=== PATIENT | female | born 1970 | race Caucasian/White ===

== ENCOUNTER 2018-12-17 16:36 | Inpatient (IN) | payer BC, OTHER ==
[~2018-12-17] VITALS: Ht 162.6 cm; Wt 67.0 kg
[2018-12-17] MEDS ORDERED: SODIUM CHLORIDE FLUSH 10ML SYR IVF ONE (17:00)
[2018-12-17] MEDS ORDERED: CLINDAMYCIN PMX 600MG/50ML 50 ML IV ONE (17:00)
[2018-12-17 17:19] LABS: BASOPHILS # (AUTO) 0.03 x10^3/uL (0-0.1); BASOPHILS % (AUTO) 0 % (0-1); EOSINOPHILS # (AUTO) 0.03 x10^3/uL (0-0.4); EOSINOPHILS % (AUTO) 0 % (1-7); LYMPHOCYTES # (AUTO) 1.91 x10^3/uL (1-3.4); LYMPHOCYTES % (AUTO) 15 % (22-44); MD NO; MEAN CORPUSCULAR HEMOGLOBIN 30.6 pg (27.0-34.8); MEAN CORPUSCULAR VOLUME 90.1 fL (80-100); MEAN PLATELET VOLUME 7.6 fL (7.4-10.4); MONOCYTES # (AUTO) 0.67 x10^3/uL (0.2-0.8); MONOCYTES % (AUTO) 5 % (2-9); NEUTROPHILS # (AUTO) 9.95 x10^3/uL (1.8-6.8); NEUTROPHILS % (AUTO) 79 % (42-75); PLATELET COUNT 294 x10^3/uL (130-400); RED BLOOD COUNT 4.83 x10^6/uL (3.82-5.3); RED CELL DISTRIBUTION WIDTH 13.9 % (9.6-15.2)
[2018-12-17 17:27] LABS: ALBUMIN 3.8 g/dL (3.4-5.0); ANION GAP 8 mmol/L (5-15); CALCIUM 8.9 mg/dL (8.5-10.1); CHLORIDE 105 mmol/L (98-107); CREATININE 0.85 mg/dL (0.55-1.02)
[2018-12-17] MEDS ORDERED: ONDANSETRON 2MG/ML, 2ML ONE (17:27)
[2018-12-17] MEDS ORDERED: DEXAMETHASONE 4 MG/ML, 5ML ONE (17:27)
[2018-12-17] MEDS ORDERED: CLINDAMYCIN PMX 600MG/50ML 50 ML ONE (17:28)
[2018-12-17] MEDS ORDERED: HYDROmorphone 1 MG/ML, 1ML AMP ONE (17:28)
[2018-12-17] MEDS ORDERED: ONDANSETRON 2MG/ML, 2ML IVPush ONE (17:30)
[2018-12-17] MEDS ORDERED: HYDROmorphone 2 MG/ML, 1ML IVPush ONE (17:30)
[2018-12-17] MEDS ORDERED: DEXAMETHASONE 4 MG/ML, 1ML IVPush ONE (17:30)
[2018-12-17] MEDS: SODIUM CHLORIDE 0.9% 1,000 ML IV SCH (17:54)
[2018-12-17] MEDS ORDERED: BISACODYL 10 MG SUPP PR PRN (18:00)
[2018-12-17] MEDS ORDERED: VANCOMYCIN PER PHARMACY MC PRN (18:00)
[2018-12-17] MEDS ORDERED: ONDANSETRON 2MG/ML, 2ML IVPush PRN (18:00)
[2018-12-17] MEDS ORDERED: ACETAMINOPHEN 325 MG TABLET PO PRN (18:00)
[2018-12-17] MEDS ORDERED: DOCUSATE 100 MG CAPSULE PO PRN (18:00)
--- NOTE | 2018-12-17 18:20 | NUR ---
PT SP02 = 88% WHEN SLEEPING AFTER REC' DELAUDID. 02 2L NC PLACED WITH EFFECT
[2018-12-17] MEDS: MEROPENEM 1 GM in SODIUM CHLORIDE 0.9% 100 ML IV SCH (18:53)
--- NOTE | 2018-12-17 20:05 | NUR ---
PT MEDICATED ORDERED. PT WITH AT BEDSIDE AND NO COMPLAINT OF PAIN AT THIS TIME. PT TO BE ADMIT BUT IS ON A MEDICAL HOLD AT THIS TIME.
--- NOTE | 2018-12-17 20:57 | NUR ---
PT UP TO BR WITH DOING STANDBY ASSIST. PT WITH VSS AND NOT WANTING PAIN MEDS AT THIS TIME.
--- NOTE | 2018-12-17 21:07 | NUR ---
REPORT CALLED PT READY TO GO
[2018-12-17] MEDS ORDERED: PHARMACOKINETIC MONITORING MC PRN (22:00)
[2018-12-17] MEDS ORDERED: VANCOMYCIN 1,400 MG in SODIUM CHLORIDE 0.9% 250 ML IV ONE (22:00)
[2018-12-17] MEDS ORDERED: PHARMACOKINETIC CONSULTATION MC ONE (22:00)
[2018-12-17] MEDS: HYDROmorphone 2 MG/ML, 1ML IVPush PRN (22:09)
[2018-12-17 23:08] VITALS: BP 122/78
[2018-12-18] MEDS: DEXAMETHASONE 4 MG/ML, 1ML IVPush SCH ×4 (00:05→18:15)
[2018-12-18] MEDS: MEROPENEM 1 GM in SODIUM CHLORIDE 0.9% 100 ML IV SCH ×3 (02:38→18:15)
[2018-12-18] MEDS: SODIUM CHLORIDE 0.9% 1,000 ML IV SCH ×2 (02:38→15:48)
[2018-12-18 03:55] VITALS: BP 106/66
[2018-12-18] MEDS: HYDROmorphone 2 MG/ML, 1ML IVPush PRN ×5 (04:08→22:13)
[2018-12-18 05:35] LABS: BASOPHILS # (AUTO) 0.02 x10^3/uL (0-0.1); BASOPHILS % (AUTO) 0 % (0-1); EOSINOPHILS # (AUTO) 0.29 x10^3/uL (0-0.4); EOSINOPHILS % (AUTO) 3 % (1-7); LYMPHOCYTES # (AUTO) 0.61 x10^3/uL (1-3.4); LYMPHOCYTES % (AUTO) 5 % (22-44); MD NO; MEAN CORPUSCULAR HEMOGLOBIN 31.1 pg (27.0-34.8); MEAN CORPUSCULAR VOLUME 91.4 fL (80-100); MONOCYTES # (AUTO) 0.27 x10^3/uL (0.2-0.8); MONOCYTES % (AUTO) 2 % (2-9); NEUTROPHILS # (AUTO) 10.14 x10^3/uL (1.8-6.8); NEUTROPHILS % (AUTO) 90 % (42-75); PLATELET COUNT 266 x10^3/uL (130-400); RED BLOOD COUNT 4.12 x10^6/uL (3.82-5.3); RED CELL DISTRIBUTION WIDTH 14.5 % (9.6-15.2)
[2018-12-18 05:36] LABS: CHLORIDE 109 mmol/L (98-107)
[2018-12-18 05:40] LABS: ALANINE AMINOTRANSFERASE 17 U/L (12-78); ALBUMIN 2.9 g/dL (3.4-5.0); ALKALINE PHOSPHATASE 92 U/L (45-117); ANION GAP 5 mmol/L (5-15); BILIRUBIN,TOTAL 0.4 mg/dL (0.2-1.0); CALCIUM 8.6 mg/dL (8.5-10.1); CREATININE 0.76 mg/dL (0.55-1.02); TOTAL PROTEIN 5.8 g/dL (6.4-8.2)
[2018-12-18 07:46] VITALS: BP 111/69
[2018-12-18] MEDS ORDERED: VANCOMYCIN 1,200 MG in SODIUM CHLORIDE 0.9% 250 ML IV SCH (10:00)
[2018-12-18 13:16] VITALS: BP 101/62
[2018-12-18 20:33] VITALS: BP 115/70
[2018-12-18] MEDS: POLYETHYLENE GLYCOL 17 GM PACKET PO PRN (22:37)
[2018-12-19] MEDS: SODIUM CHLORIDE 0.9% 1,000 ML IV SCH (00:28)
[2018-12-19] MEDS: DEXAMETHASONE 4 MG/ML, 1ML IVPush SCH ×2 (00:33→06:21)
[2018-12-19 01:43] VITALS: BP 115/68
[2018-12-19] MEDS: HYDROmorphone 2 MG/ML, 1ML IVPush PRN ×2 (02:54→06:21)
[2018-12-19] MEDS: MEROPENEM 1 GM in SODIUM CHLORIDE 0.9% 100 ML IV SCH ×2 (02:54→11:23)
[2018-12-19 05:29] LABS: BASOPHILS % (AUTO) 0 % (0-1); EOSINOPHILS % (AUTO) 0 % (1-7); LYMPHOCYTES # (AUTO) 0.88 x10^3/uL (1-3.4); LYMPHOCYTES % (AUTO) 7 % (22-44); MD NO; MEAN CORPUSCULAR HEMOGLOBIN 30.9 pg (27.0-34.8); MEAN CORPUSCULAR HGB CONC 33.9 g/dL (32.4-35.8); MONOCYTES % (AUTO) 4 % (2-9); NEUTROPHILS # (AUTO) 12.04 x10^3/uL (1.8-6.8); NEUTROPHILS % (AUTO) 90 % (42-75); PLATELET COUNT 279 x10^3/uL (130-400); RED BLOOD COUNT 3.93 x10^6/uL (3.82-5.3); RED CELL DISTRIBUTION WIDTH 14.4 % (9.6-15.2)
[2018-12-19] MEDS ORDERED: OMEPRAZOLE 20 MG CAPSULE.DR PO SCH (08:00)
[2018-12-19 08:11] VITALS: BP 115/68
[2018-12-19] MEDS: DEXAMETHASONE 4 MG TABLET PO SCH ×3 (08:46→17:11)
[2018-12-19] MEDS: OXYcodone/APAP 5/325MG TABLET PO PRN ×3 (08:54→18:18)
[2018-12-19 13:19] VITALS: BP 123/67
[2018-12-19] MEDS ORDERED: DEXA2TAB PO (14:00)
[2018-12-19] MEDS ORDERED: CLIN300C8 PO (14:00)
[2018-12-19] MEDS ORDERED: OMEP-110 PO (14:04)
[2018-12-19] MEDS: POLYETHYLENE GLYCOL 17 GM PACKET PO PRN (15:38)
[2018-12-19] MEDS ORDERED: OXYC-302 PO (18:07)
== END 2018-12-19 18:30 | disposition home or self-care (01) | DRG 156 ==
LOC: ED 17:22 → EDIP 17:23 → ED 18:16 → 4NOR 21:28
PROVIDERS: ADMIT Hospitalist; ATTEND Hospitalist
PROC: 0C9J3ZX Drainage of Minor Salivary Gland, Percutaneous Approach, Diagnostic (ICD-10-PCS; principal; 2018-12-18)
DX: K11.21 Acute sialoadenitis (principal); H91.90 Unspecified hearing loss, unspecified ear; Z90.5 Acquired absence of kidney; Z90.710 Acquired absence of both cervix and uterus; Z88.6 Allergy status to analgesic agent; Z88.1 Allergy status to other antibiotic agents; Z91.040 Latex allergy status; Z88.0 Allergy status to penicillin; Z91.048 Other nonmedicinal substance allergy status; K11.3 Abscess of salivary gland; Z52.4 Kidney donor
CPT/HCPCS: 36415; 80048; 80053; 82040; 83605; 84145; 85025; 87040; G0378; J1100; J1170; J2185; J2405; J3370; J7030; J7050